=== PATIENT | male | born 1985 | race Caucasian/White ===

== ENCOUNTER → 2016-04-30 | Outpatient (CLI) | payer OTHER ==
[~2016-04-30] MED LIST: NORCO 5-325 TA1 EACH PO
== END | disposition disaster alternative care site (69) ==
LOC: GRAD 08:46
DX: R31.9 Hematuria, unspecified (principal); R10.9 Unspecified abdominal pain; N20.1 Calculus of ureter; N20.2 Calculus of kidney with calculus of ureter; K76.0 Fatty (change of) liver, not elsewhere classified

== ENCOUNTER → 2016-04-30 | Day surgery (SDC) | payer OTHER ==
[~2016-04-30] VITALS: Ht 182.9 cm; Wt 145.0 kg
--- NOTE | ~2016-04-30 | OR ---
PATIENT'S NAME: COLETTE BONILLA [facility] AGE: 31 Y [address] ROOM: [place] [id number] LOCATION: [facility] [place] ADMIT DATE: 04/30/2016 OR/Procedure Report DISCHARGE DATE: FAMILY PHYSICIAN: Andreas Andres ATTENDING PHYSICIAN: Janet Mahmood SURGEON: Janet Mahmood MD SVP RESEARCH AND STRATEGIC ANALYSIS: DATE OF PROCEDURE: 04/30/2016 PREOPERATIVE DIAGNOSIS: A 6.3 mm left distal ureteral calculus. POSTOPERATIVE DIAGNOSIS: A 6.3 mm left distal ureteral calculus. PROCEDURES PERFORMED: Cystoscopy with left ureteroscopy and laser lithotripsy with stone extraction followed by left ureteral stent placement. ANESTHESIA: General. INDICATION: This is a 31-year-old young man with a past history of stone disease. He has never had an intervention. He passed a couple of smaller stones from the right side last year. He had been told that he had a stone on the left side. The stone dropped down, and he had an idea of what it was. He presented to one of the urgent care centers. He was referred for CT scan. He has a 6.3 mm stone. He was given the option to try for spontaneous passage versus intervention. Based on his experience with the smaller stones, he wanted extraction. DESCRIPTION OF PROCEDURE: Having obtained his informed consent, the patient was taken to the operating room. He was prepped and draped sterilely and in lithotomy position. General anesthesia was administered. A 21-Turkmen cystoscope was assembled and guided into the urethra. The course of the urethra was unremarkable. The bladder itself demonstrated no tumors, stones, or foreign bodies. Bladder examination was confirmed with a 70-degree lens. Under fluoroscopy, I could see a suspect density as I had appreciated on a CT scan. I passed a guidewire up the left side. Indeed, it bounced against that. Based on the 6.3 mm size, he was going to need dilated. A balloon dilator was passed over the wire. The orifice and intramural tunnel were dilated. I then passed the semi-rigid ureteroscope. The stone was visualized. It was too large to put in a basket. Therefore, a 400 micron fiber was prepared and passed. Using 600 mJ at 6 Hz, the stone was fragmented. The fragments were then extracted. The dominant pieces were sent for analysis. PATIENT'S NAME: COLETTE BONILLA [facility] AGE: 31 Y [address] ROOM: [place] [address] LOCATION: [facility] [place] ADMIT DATE: 04/30/2016 OR/Procedure Report DISCHARGE DATE: FAMILY PHYSICIAN: Andreas Andres ATTENDING PHYSICIAN: Janet Mahmood After all that, he merited stenting. My safety wire was back-loaded into the cystoscope. Over that, I passed a 4.8 Multi-Link stent. We had a nice level of placement using cystoscopic and fluoroscopic visualization. The bladder was drained, and the case was concluded. The patient tolerated the procedure well. Blood loss was negligible. The stone was sent for analysis. The patient returned to the outpatient recovery area, awake, and in stable condition. JANET MAHMOOD MD [facility]/edwardl /[id number] CC: GERALD Robles d: 04/30/16 1525 t: 05/08/16 0932, OPERATIVE SUMMARY
[2016-04-30 10:34] LABS: BASOPHIL # 0.1 K/uL (0.0-0.2); BASOPHIL % 0.6 %; EOSINOPHIL # 0.1 K/uL (0.0-0.5); HEMATOCRIT 42.2 % (37.0-53.0); HEMOGLOBIN 14.5 g/dL (12.0-17.0); IMMATURE GRANULOCYTE % 0.3 %; LYMPHOCYTE # 3.2 K/uL (0.8-4.0); LYMPHOCYTE % 26.8 %; MCH 29.2 pg (27.0-34.0); MCHC 34.4 gm/dL (32.0-36.5); MCV 85.1 fl (83.0-98.0); MONOCYTE # 0.7 K/uL (0.0-1.0); MPV 10.2 fl (9.4-12.4); NEUTROPHIL # (ANC) 7.8 K/uL (1.4-9.0); NEUTROPHIL % 65.3 %; NRBC % 0 /100WBC (0-0.00); PLATELET COUNT 307 K/uL (150-450); RBC 4.96 M/uL (4.00-6.00); RDW-CV 12.5 % (11.9-14.6)
[2016-04-30 10:50] LABS: ALBUMIN 3.8 gm/dL (3.5-5.0); ALK PHOS 61 IU/L (33-138); ALT 67 IU/L (12-78); BLOOD UREA NITROGEN 14 mg/dL (6-24); CALCIUM 8.7 mg/dL (8.5-10.5); CHLORIDE 105 mMol/L (96-110); CO2 27 mMol/L (22-32); ESTIMATED GFR (MDRD EQUATION) > 60; SODIUM 142 mMol/L (135-145); TOTAL BILIRUBIN 0.4 mg/dL (0.0-1.5); TOTAL PROTEIN 7.6 g/dL (6.0-8.4)
[2016-04-30 10:51] LABS: AST 37 IU/L (10-40)
== END | disposition disaster alternative care site (69) ==
LOC: GSDC 09:59 → GPOC 10:00
PROVIDERS: Urology
PROC: 0TF78ZZ Fragmentation in Left Ureter, Via Natural or Artificial Opening Endoscopic (ICD-10-PCS; principal; 2016-04-30)
PROC: 0T778DZ Dilation of Left Ureter with Intraluminal Device, Via Natural or Artificial Opening Endoscopic (ICD-10-PCS; 2016-04-30)
DX: N20.1 Calculus of ureter (principal)
CPT/HCPCS: C1725; C1769; C2617; J1956; J2001; J7120